=== PATIENT | male | born 1995 | race Caucasian/White ===

== ENCOUNTER 2017-04-20 12:15 | Emergency (ER) | payer SELFPAY ==
[2017-04-20] MEDS ORDERED: Diphtheria/Tetanus Toxoids,Adult (Td) 0.5 ML SDV ONE (12:20)
--- NOTE | 2017-04-20 12:31 | EDM.PDOC ---
ED HPI GENERAL MEDICAL PROBLEM - General Chief Complaint: Upper Extremity Injury/Pain Stated Complaint: left wrist injury Time Seen by Provider: 04/20/17 12:25 Source of Information: Reports: Patient, RN History Limitations: Reports: No Limitations - History of Present Illness INITIAL COMMENTS - FREE TEXT/NARRATIVE: 22 yr male presents with puncture injury to left wrist from nail gun. States he was able to pull the nail back out. Pt alert and sitting on side of stretcher. States pain 08/29. 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 Social & Family History - Tobacco Use Smoking Status *Q: Current Every Day Smoker Years of Tobacco use: 5 Packs/Tins Daily: 1 Used Tobacco, but Quit: No Second Hand Smoke Exposure: Yes - Alcohol Use Days Per Week of Alcohol Use: 3 Number of Drinks Per Day: 5 Total Drinks Per Week: 15 - Recreational Drug Use Recreational Drug Use: No Review of Systems - Review of Systems Review Of Systems: See Below Constitutional: Reports: No Symptoms Respiratory: Reports: No Symptoms Cardiovascular: Reports: No Symptoms GI/Abdominal: Reports: No Symptoms Musculoskeletal: Reports: Other (wrist pain) Skin: Reports: Wound Neurological: Reports: No Symptoms Psychiatric: Reports: No Symptoms ED EXAM, GENERAL - Physical Exam Exam: See Below Exam Limited By: No Limitations General Appearance: Alert, No Apparent Distress Respiratory/Chest: No Respiratory Distress, Lungs Clear Cardiovascular: Regular Rate, Rhythm Peripheral Pulses: 2+: Radial (L), Radial (R) Extremities: Normal Capillary Refill, Other (puncture wound left wrist) Neurological: Alert, Oriented Psychiatric: Normal Affect, Normal Mood Course - Orders/Labs/Meds Orders: Active Orders 24 hr Category Date Time Status Wrist 2V Lt [CR] Stat Exams 04/20/17 12:25 Taken - Re-Assessments/Exams Free Text/Narrative Re-Assessment/Exam: 04/20/17 13:14 LE 12:40. Reviewed x-ray, no foreign body noted to wrist and bones intact. Reviewed result with pt. Will start prophylactic Keflex 500 mg PO bid for 3 days. Tetanus 2009, will repeat dose today. Reviewed signs of infection. Keep area clean and dry. RTC if signs of infection noted. May use Tylenol or Ibuprofen as needed for discomfort. Departure - Departure Time of Disposition: 12:45 Disposition: Home, Self-Care 01 Condition: Good Clinical Impression: Puncture wound - Discharge Information Prescriptions: Cephalexin 500 mg PO BID #6 capsule Instructions: Puncture Wound, [id number] Referrals: PCP,None [Primary Care Provider] - Forms: ED Department Discharge Additional Instructions: Keflex 500mg 2 x day x's 3 days - My Orders Last 24 Hours: My Active Orders 04/20/17 12:25 Wrist 2V Lt [CR] Stat - Assessment/Plan Last 24 Hours: My Active Orders 04/20/17 12:25 Wrist 2V Lt [CR] Stat
--- NOTE | 2017-04-20 17:37 | CR ---
DATE OF SERVICE: 04/20/17 CLINICAL DATA: injury left wrist LEFT WRIST AP and lateral views were performed. No acute fracture or dislocation.No lytic or blastic bone lesions. The soft tissues are unremarkable. No radiodense foreign bodies. [id number] MTDD
== END 2017-04-20 12:44 | disposition home or self-care (01) ==
LOC: LB.ED 12:15
DX: S61.532A Puncture wound without foreign body of left wrist, initial encounter (principal); F17.210 Nicotine dependence, cigarettes, uncomplicated; Z23 Encounter for immunization; W29.4XXA Contact with nail gun, initial encounter
CPT/HCPCS: 73100-LT; 90471; 90714; 99283; 99283-25

== ENCOUNTER 2019-08-13 21:21 | Emergency (ER) | payer SELFPAY ==
[2019-08-13] MEDS: GI Cocktail Oral Solution 30 ML PO ONE ×2 (22:28→22:40)
[2019-08-13 22:42] VITALS: BP 144/80; PULSE 74
--- NOTE | 2019-08-13 22:47 | EDM.PDOC ---
ED HPI GENERAL MEDICAL PROBLEM - General Chief Complaint: General Stated Complaint: Weakness, SOB, nausea, vomiting Time Seen by Provider: 08/13/19 21:45 Source of Information: Reports: Patient History Limitations: Reports: No Limitations - History of Present Illness INITIAL COMMENTS - FREE TEXT/NARRATIVE: Amari presents at the requst of his mom to ensure he isn't having a heart attack. She was worried because he had the onset of "chest tightness" after vomiting due to a hard night of drinking. When she called it was triaged as SOB , but in questioning him multiple ways, it is more of a substernal discomfort. Not elicited with activity, deep breath, or position change. No chest soreness , cough, wheezing, or recent illness. He does have occasional heartburn and definite ongoing dyspepsia. No measures tried. FH of heart issues, but does not sound early onset. They seem to want more advice as to what to do for his sx's, than an exhaustive w/u tonight. He confers reliability to return if sx's persist or worsen. 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 Social & Family History - Tobacco Use Smoking Status *Q: Former Smoker Years of Tobacco use: 10 Packs/Tins Daily: 1 Used Tobacco, but Quit: Yes Month/Year Tobacco Last Used: 10 Second Hand Smoke Exposure: No - Caffeine Use Caffeine Use: Reports: Coffee, Soda - Recreational Drug Use Recreational Drug Type: Reports: Marijuana/Hashish, Methamphetamine ED ROS GENERAL - Review of Systems Review Of Systems: See Below Constitutional: Reports: No Symptoms Respiratory: Reports: No Symptoms Cardiovascular: Reports: Chest Pain GI/Abdominal: Reports: Nausea, Vomiting. Denies: Black Stool, Bloody Stool, Diarrhea ED EXAM, GENERAL - Physical Exam Exam: See Below Exam Limited By: No Limitations General Appearance: Alert, WD/WN, No Apparent Distress. No: Anxious Respiratory/Chest: No Respiratory Distress, Lungs Clear, Normal Breath Sounds, Chest Non-Tender Cardiovascular: Regular Rate, Rhythm, No Gallop, No Murmur, No Rub GI/Abdominal: Normal Bowel Sounds, Soft, No Mass, Tender (slightly to deep palpation over the epigastric area) Back Exam: Normal Inspection Extremities: Non-Tender, Normal Capillary Refill Neurological: Alert, Oriented, Normal Cognition, Normal Gait Course - Vital Signs Text/Narrative:: Discussed differential and w/u options with patient and his mother they really are not interested in an exhaustive diagnostic foray, as much as, simple reassurance Pain relieved with gi cocktail Last Recorded V/S: Last Vital Signs Temp 97.2 F 08/13/19 21:48 Pulse 74 08/13/19 21:48 Resp 18 08/13/19 21:48 BP 144/80 H 08/13/19 21:48 Pulse Ox 96 08/13/19 21:48 - Orders/Labs/Meds Orders: Active Orders 24 hr Category Date Time Status EKG Documentation Completion [RC] ASDIRECTED Care 08/13/19 22:42 Active Meds: Medications Discontinued Medications Generic Name Dose Route Start Last Admin Trade Name Khoi PRN Reason Stop Dose Admin Al Hydroxide/Mg Hydroxide 75 ml 08/13/19 22:19 08/13/19 22:28 Gi Cocktail PO 08/13/19 22:20 75 ml ONETIME ONE Administration Al Hydroxide/Mg Hydroxide 30 ml 08/13/19 22:40 08/13/19 22:40 Gi Cocktail PO 08/13/19 22:41 Not Given ONETIME ONE Departure - Departure Time of Disposition: 22:00 Disposition: Home, Self-Care 01 Clinical Impression: Chest tightness - Discharge Information Instructions: Esophageal Spasm, Nonspecific Chest Pain, [id number] Referrals: PCP,None [Primary Care Provider] - Forms: ED Department Discharge Additional Instructions: Please come back or see your doctor in the clinic if things aren't squared away after taking an antacid for a week or so. Take carePatrice MD Sepsis Event Note - Evaluation Sepsis Screening Result: No Definite Risk - Focused Exam Date Exam was Performed: 08/14/19 Time Exam was Performed: 20:32 - My Orders Last 24 Hours: My Active Orders 08/13/19 22:42 EKG Documentation Completion [RC] ASDIRECTED - Assessment/Plan Last 24 Hours: My Active Orders 08/13/19 22:42 EKG Documentation Completion [RC] ASDIRECTED Assessment:: Chest tightness- explained seems most c/w esophageal etiology EKG reassuring plan OTC antacid regimen return or clinic visit if not completely improved thereafter
== END 2019-08-13 23:00 | disposition home or self-care (01) ==
LOC: LB.ED 21:21
DX: R07.89 Other chest pain (principal); Z87.891 Personal history of nicotine dependence
CPT/HCPCS: 93005; 99284-25; A9270-GY

== ENCOUNTER 2021-04-07 18:53 | Emergency (ER) | payer MEDICAID ==
[2021-04-07 19:18] VITALS: PULSE 101
--- NOTE | 2021-04-07 20:11 | EDM.PDOC ---
ED HPI GENERAL MEDICAL PROBLEM - General Chief Complaint: Fever Stated Complaint: FEVER Time Seen by Provider: 04/07/21 19:35 - History of Present Illness INITIAL COMMENTS - FREE TEXT/NARRATIVE: Pt comes to the ER with C/O fever and feeling tired. Symptoms started last Thursday. He has been exposed to Covid at work. He has not taken any OTC meds. He has no underlying health conditions and takes no prescription meds. 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 Social & Family History - Tobacco Use Tobacco Use Status *Q: Light Tobacco User Tobacco Use Comment: PT STATES HE HAS NOT VAPED FOR ABOUT A WEEK - Caffeine Use Caffeine Use: Reports: Coffee, Soda - Recreational Drug Use Recreational Drug Use: No ED ROS GENERAL - Review of Systems Review Of Systems: Comprehensive ROS is negative, except as noted in HPI. Constitutional: Reports: Fever, Fatigue, Other (and a runny nose.) ED EXAM, GENERAL - Physical Exam Exam: See Below Free Text/Narrative:: He was Covid tested in his car and it's positive. He is in no respiratory distress, no coughing or SOB. 02 SATS are 98%. Course - Vital Signs Last Recorded V/S: Last Vital Signs Temp 99.1 F 04/07/21 19:15 Pulse 101 H 04/07/21 19:15 Resp 20 04/07/21 19:15 BP Pulse Ox 98 04/07/21 19:15 - Orders/Labs/Meds Labs: Laboratory Tests 04/07/21 Range/Units 19:10 SARS CoV-2 RNA Rapid JOSIANE Positive H - Re-Assessments/Exams Free Text/Narrative Re-Assessment/Exam: 04/07/21 20:07 I discussed with the pt that he can go home. Quarantine for 10 days from onset of symptoms. Treat with rest - Tylenol and/or Motrin - increase fluids with small freq drinks. Call back with any questions - come back if his condition gets worse. Monitor other family members - if they develop symptoms they should also quarantine. He agree's with the tx plan and has no other questions. He has not been vaccinated. Departure - Departure Time of Disposition: 19:50 Disposition: Home, Self-Care 01 Condition: Good Clinical Impression: COVID-19 - Discharge Information *PRESCRIPTION DRUG MONITORING PROGRAM REVIEWED*: No *COPY OF PRESCRIPTION DRUG MONITORING REPORT IN PATIENT LAUREL: No Referrals: PCP,None [Primary Care Provider] - Sepsis Event Note (ED) - Evaluation Sepsis Screening Result: No Definite Risk - Focused Exam Vital Signs: Vital Signs Temp Pulse Resp Pulse Ox 04/07/21 19:15 99.1 F 101 H 20 98
== END 2021-04-07 20:12 | disposition home or self-care (01) ==
LOC: LB.ED 18:53
DX: U07.1 COVID-19 (principal); Z72.0 Tobacco use
CPT/HCPCS: 99283; U0002

== ENCOUNTER 2023-10-06 17:52 | Emergency (ER) | payer MEDICAID ==
[2023-10-06] MEDS: GI Cocktail Oral Solution 30 ML PO ONE (18:15)
[2023-10-06 19:00] VITALS: BP 132/93; PULSE 85
== END 2023-10-06 19:02 | disposition home or self-care (01) ==
LOC: LB.ED 17:52
DX: K21.9 Gastro-esophageal reflux disease without esophagitis (principal); K29.00 Acute gastritis without bleeding; F17.210 Nicotine dependence, cigarettes, uncomplicated; E66.9 Obesity, unspecified; Z86.16 Personal history of COVID-19; Z68.38 Body mass index [BMI] 38.0-38.9, adult
CPT/HCPCS: 99283; A9270-GY